=== PATIENT | male | born 1995 | race Caucasian/White ===

== ENCOUNTER → 2018-09-21 10:37 | Outpatient (CLI) | payer OTHER, SELFPAY ==
--- NOTE | 2018-09-21 10:41 | DI.ECHO.S_ITS ---
[facility] +---------+ : : [address] : [place] : : : : [id number] : : : : Phone: [phone]+ Echocardiogram Report + + :Name: DM FRANKLIN Study Date: 09/21/2018 Height: 71 in : :[facility] Weight: 195 lb : : Gender: Male BSA: 2.1 m2 : :: 1995 Age: 23 yrs BP: 138/78 mmHg: :Reason For Study: Palpitations : : Performed By: Ladonna Vann : :Referring: MURIEL SHEFFIELD : + + Interpretation Summary The left ventricle is normal in size, wall thickness, and systolic function without any focal wall motion abnormalities. The ejection fraction is estimated to be 55-60%. The right ventricle is normal in size and function. No significant valvular pathology seen. Procedure: A two-dimensional transthoracic echocardiogram with color flow and Doppler was performed. The study quality was technically good. There is no prior echocardiogram noted for this patient. The patient was in normal sinus rhythm during the exam. Left Ventricle: The left ventricle is normal in size, wall thickness, and systolic function without any focal wall motion abnormalities. There is no thrombus. The ejection fraction is estimated to be 55-60%. There are no focal wall motion abnormalities. Diastolic parameters suggest probable normal left ventricular diastolic function and normal filling pressures. Right Ventricle: The right ventricle is normal in size and function. Atria: The left atrium is mildly dilated. The right atrium is mildly dilated. The interatrial septum is intact with no evidence for an atrial septal defect. Mitral Valve: The mitral valve is normal in structure and function. There is trace mitral regurgitation. Aortic Valve: The aortic valve is trileaflet. The aortic valve opens well. There is no aortic valve stenosis. No aortic regurgitation is present. Tricuspid Valve: The tricuspid valve is normal in structure and function. There is trace tricuspid regurgitation. The right ventricular systolic pressure is estimated to be at least 22 mmHg based on an estimated right atrial pressure of 3 mm Hg. Pulmonic Valve: The pulmonic valve is normal in structure and function. There is trace pulmonic regurgitation. Great Vessels: The aortic root is normal size. The dimensions of the ascending aorta are normal. The aortic arch is normal in size. The IVC is of normal diameter and collapses greater than 50% with a sniff. This suggests a low right atrial pressure of 3 mm Hg. Pericardium/ Pleura There is no pericardial effusion. There is no pleural effusion. MMode/2D Measurements & Calculations LVIDd: 5.3 cm Ao root diam: 3.1 cm LVIDs: 3.3 cm Aortic Jxn: 2.6 cm FS: 37.8 % asc Aorta Diam: 2.7 cm EPSS: 0.65 cm Ao Arch Diam (Prox Trans): 2.5 cm IVSd: 0.84 cm LVPWd: 0.84 cm LV guidry. diameter/BSA (cm/m^2): 2.5 LV sys. diameter/BSA (cm/m^2): 1.6 LA dimension: 3.8 cm RA long axis: 5.1 cm LA A2 area: 27.0 cm2 RA area: 22.4 cm2 LA A4 area: 22.4 cm2 RA vol: 83.6 ml LA length (vol): 5.8 cm RA : 40.1 ml/m2 LA vol: 88.8 ml IVC diam: 1.6 cm LA vol index: 42.5 ml/m2 RVDd major: 6.8 cm RVD1 (basal): 3.9 cm RVD2 (mid): 3.5 cm Doppler Measurements & Calculations Ao V2 max: 129.3 cm/sec MV E max wilberto: 94.4 cm/sec Ao V2 mean: 85.4 cm/sec MV A max wilberto: 51.2 cm/sec Ao max P.7 mmHg MV E/A: 1.8 Ao mean P.4 mmHg Med Peak E' Wilberto: 12.3 cm/sec Ao V2 VTI: 28.4 cm E/E' med: 7.7 Lat Peak E' Wilberto: 15.5 cm/sec E/E' lat: 6.1 E/e' average: 6.9 MV dec time: 0.17 sec MV P1/2t: 51.6 msec TR max wilberto: 218.8 cm/sec MV P1/2t max wilberto: 93.8 cm/sec TR max P.1 mmHg MVA(P1/2t): 4.3 cm2 PA V2 max: 80.3 cm/sec PA V2 mean: 53.0 cm/sec PA mean P.3 mmHg PA Accel Time: 0.14 sec Reading Physician:DA
== END ==
PROVIDERS: Visit Provider Physician Assistant
DX: R00.2 Palpitations (principal)
CPT/HCPCS: 93306